=== PATIENT | female | born 2000 | race African-American/Black ===

== ENCOUNTER 2024-02-07 05:04 | Emergency (ER) | payer OTHER ==
[~2024-02-07] VITALS: Ht 152.4 cm; Wt 52.0 kg
[2024-02-07] MEDS ORDERED: LORazepam 2MG/ML-1ML VIAL IV ONE (05:15)
[2024-02-07 05:23] VITALS: PULSE 127; RESP 30; O2SAT 100
[2024-02-07] MEDS: LORazepam 2MG/ML-1ML VIAL IM ONE (06:09)
[2024-02-07] MEDS: LORazepam 2MG/ML-1ML VIAL IV ONE (06:18)
[2024-02-07 06:33] LABS: Amphetamine Screen, Urine Neg (NEGATIVE); Benzodiazephine Screen, Urine Neg (NEGATIVE)
[2024-02-07 06:34] LABS: Barbiturate Scree,Urine Neg (NEGATIVE); Cannabinoid Screen, Urine Neg (NEGATIVE); Cocaine Screen, Urine Neg (NEGATIVE); Opiate Scree,Urine Neg (NEGATIVE); Phencyclidine Screen, Urine Neg (NEGATIVE)
[2024-02-07 07:13] LABS: Urine WBC None Seen /hpf (0 - 5)
[2024-02-07 07:39] LABS: Urine Bacteria FEW /hpf (None Seen); Urine Blood Negative /uL (Negative); Urine Clarity Clear (Clear); Urine Color Straw (Yellow); Urine Protein, UAD Negative (Negative); Urine Specific Gravity 1.002 (1.001-1.035); Urine Urobilinogen Normal (Negative)
[2024-02-07 07:40] VITALS: BP 96/67; PULSE 97; RESP 22; TEMP 98.7; O2SAT 96
== END 2024-02-07 08:23 | disposition home or self-care (01) ==
LOC: ER 05:04
DX: F41.9 Anxiety disorder, unspecified (principal); Z86.2 Personal history of diseases of the blood and blood-forming organs and certain disorders involving the immune mechanism; Z79.899 Other long term (current) drug therapy
CPT/HCPCS: 80307; 81001; 82962; 96374; 99283; J2060